=== PATIENT | female | born 1955 | race Caucasian/White ===

== ENCOUNTER 2016-05-05 06:54 | Outpatient (CLI) | payer BC, MEDICARE ==
--- NOTE | 2016-05-05 13:00 | RAD ---
LEFT FOOT 3 VIEWS: DATE: 05/05/16. FINDINGS: The bones are osteopenic and a bandage is around the foot. No obvious areas of bony destruction are seen to suggest osteomyelitis. No fracture was present. Mild hallux valgus is present and there a re flexion deformities of the digits at the IP and PIP joints. IMPRESSION: No acute bony finding. POS: HOME
--- NOTE | 2016-05-05 13:01 | RAD ---
RIGHT FOOT 3 VIEWS: DATE: 05/05/16. FINDINGS: The bones are osteopenic and a bandage is in place around the foot. There were no areas of bony mauro truction apparent to suggest osteomyelitis. Mild hallux valgus is seen along with flexion deformiti es of the digits at the IP and PIP joints. IMPRESSION: No acute findings. POS: HOME
== END 2016-05-05 06:55 | disposition home or self-care (01) ==
LOC: BURRAD 06:54
PROVIDERS: ATTEND Family Medicine
DX: L89.892 Pressure ulcer of other site, stage 2 (principal)

== ENCOUNTER 2016-05-21 13:06 | Outpatient (CLI) | payer BC, MEDICARE ==
[2016-05-21 14:19] LABS: ALT (SGPT) 55 U/L (0-55); AST (SGOT) 27 U/L (5-34); Alkaline Phosphatase 65 U/L (40-150); Anion Gap 14 mmol/L (10-20); BUN (Urea Nitrogen) 9 mg/dL (9.8-20.1); Bilirubin, Total 0.2 mg/dL (0.2-1.2); Calc. Creatinine Clearance 0 mL/min (70-130); Calcium 8.6 mg/dL (7.8-10.44); Carbon Dioxide 19 mmol/L (22-29); Chloride 111 mmol/L (98-107); Estimated GFR-MDRD Greater than 90; Globulin 3.5 g/dL (2.4-3.5)
[2016-05-23 18:16] LABS: Collection Duration 24 hrs; Urine Total Volume 2650 mL (250-2400)
== END 2016-05-21 13:07 | disposition home or self-care (01) ==
LOC: BURLAB 13:06
PROVIDERS: ATTEND Family Medicine Sports Medicine
DX: E87.6 Hypokalemia (principal); E83.50 Unspecified disorder of calcium metabolism
CPT/HCPCS: 36415; 80053; 82306; 82340; 82652; 83970; 84133

== ENCOUNTER 2016-07-01 10:58 | Outpatient (CLI) | payer BC, MEDICARE | END 2016-07-01 10:59 | disposition home or self-care (01) | LOC: BURLAB 10:58 | PROVIDERS: ATTEND Family Medicine Sports Medicine | DX: E87.6 Hypokalemia (principal) | CPT/HCPCS: 36415; 82310; 83970 ==

== ENCOUNTER 2016-08-11 11:37 | Outpatient (CLI) | payer BC, MEDICARE ==
[2016-08-11 12:41] LABS: ALT (SGPT) 92 U/L (0-55); AST (SGOT) 54 U/L (5-34); Albumin 3.9 g/dL (3.5-5.0); Alkaline Phosphatase 46 U/L (40-150); Anion Gap 14 mmol/L (10-20); BUN (Urea Nitrogen) 11 mg/dL (9.8-20.1); Bilirubin, Total 0.3 mg/dL (0.2-1.2); Calc. Creatinine Clearance 0 mL/min (70-130); Calcium 9.4 mg/dL (7.8-10.44); Carbon Dioxide 28 mmol/L (22-29); Chloride 91 mmol/L (98-107); Estimated GFR-MDRD Greater than 90; Globulin 3.3 g/dL (2.4-3.5); Glucose 85 mg/dL (70-105); Potassium 3.7 mmol/L (3.5-5.1); Protein, Total 7.2 g/dL (6.0-8.3); Sodium 129 mmol/L (136-145)
[2016-08-11 13:02] LABS: Free T4 (Free Thyroxine) 1.35 ng/dL (0.70-1.48); Thyroid Stimulating Hormone 1.2568 uIU/mL (0.35-4.94); Vitamin D, 25 Hydroxy 47.1 ng/mL (> 30.0)
[2016-08-11 17:08] LABS: Phosphorus 3.7 mg/dL (2.3-4.7)
== END 2016-08-11 11:38 | disposition home or self-care (01) ==
LOC: BURLAB 11:37
PROVIDERS: ATTEND Internal Medicine Endocrinology, Diabetes & Metabolism
DX: E03.9 Hypothyroidism, unspecified (principal); E83.52 Hypercalcemia; M81.0 Age-related osteoporosis without current pathological fracture
CPT/HCPCS: 36415; 80053; 82306; 82652; 83970; 84100; 84439; 84443

== ENCOUNTER 2016-08-13 09:21 | Outpatient (CLI) | payer BC, MEDICARE | END 2016-08-13 09:22 | disposition home or self-care (01) | LOC: BURLAB 09:21 | PROVIDERS: ATTEND Internal Medicine Endocrinology, Diabetes & Metabolism | DX: E83.52 Hypercalcemia (principal); M81.0 Age-related osteoporosis without current pathological fracture | CPT/HCPCS: 82340 ==

== ENCOUNTER 2016-09-16 21:48 | Emergency (ER) | payer BC, MEDICARE ==
[2016-09-16] MEDS ORDERED: Ciprofloxacin 500 MG TAB ONE (22:27)
[2016-09-16 22:59] LABS: ALT (SGPT) 84 U/L (8-55); AST (SGOT) 46 U/L (5-34); Albumin 3.5 g/dL (3.5-5.0); Alkaline Phosphatase 50 U/L (40-150); Anion Gap 14 mmol/L (10-20); BUN (Urea Nitrogen) 8 mg/dL (9.8-20.1); Bilirubin, Total 0.3 mg/dL (0.2-1.2); Calc. Creatinine Clearance 0 mL/min (70-130); Calcium 9.1 mg/dL (7.8-10.44); Carbon Dioxide 22 mmol/L (22-29); Chloride 100 mmol/L (98-107); Estimated GFR-MDRD Greater than 90; Globulin 3.2 g/dL (2.4-3.5); Glucose 107 mg/dL (70-105); Protein, Total 6.7 g/dL (6.0-8.3); Sodium 132 mmol/L (136-145)
== END 2016-09-16 23:00 | disposition home or self-care (01) ==
LOC: BURERS 21:48
DX: N39.0 Urinary tract infection, site not specified (principal); Z79.899 Other long term (current) drug therapy
CPT/HCPCS: 36415; 80053; 99284

== ENCOUNTER 2016-11-05 12:19 | Outpatient (CLI) | payer BC, MEDICARE ==
[2016-11-05 12:41] LABS: Bilirubin Negative (Negative); Blood, Urine Negative (Negative); Clarity Slightly Cloudy (Clear); Glucose, Urine (Dipstick) Negative (Negative); Leukocyte Moderate (Negative); Nitrite Negative (Negative); Protein, Urine (Dipstick) Negative (Neg-Trace); Urobilinogen 0.2 mg/dL (0.2-1.0)
== END 2016-11-05 12:20 | disposition home or self-care (01) ==
LOC: BURLAB 12:19
PROVIDERS: ATTEND Family Medicine Sports Medicine
DX: N39.0 Urinary tract infection, site not specified (principal)
CPT/HCPCS: 81003; 87086

== ENCOUNTER 2016-12-12 22:19 | Outpatient (CLI) | payer BC, MEDICARE ==
[2016-12-12 22:40] LABS: Bilirubin Negative (Negative); Blood, Urine Trace (Negative); Clarity Hazy (Clear); Glucose, Urine (Dipstick) Negative (Negative); Leukocyte Large (Negative); Nitrite Negative (Negative); Protein, Urine (Dipstick) Negative (Neg-Trace); Urobilinogen 0.2 mg/dL (0.2-1.0); pH, Urine 6.5 (5.0-9.0)
[2016-12-12 22:48] LABS: Bacteria/HPF 1+ HPF (None Seen); Crystals/HPF 1+ AMORPH URATES HPF (Negative); RBC/HPF 0-3 HPF (0-3); Renal Epithelial 0-3 HPF (0-3); Squamous Epithelial 0-3 HPF (0-3); WBC/HPF 21-50 HPF (0-3); Yeast-All Forms 1+ HPF (None Seen)
== END 2016-12-12 22:20 | disposition home or self-care (01) ==
LOC: BURLAB 22:19
PROVIDERS: ATTEND Family Medicine Sports Medicine
DX: N39.0 Urinary tract infection, site not specified (principal)
CPT/HCPCS: 81003; 81015; 87086